=== PATIENT | male | born 2005 | race Caucasian/White ===

== ENCOUNTER 2024-02-08 01:33 | Emergency (ER) | payer SELFPAY ==
--- NOTE | ~2024-02-08 | XR_ITS ---
Clinical Indication: Chest pain PA and lateral views of the chest: Comparison: None Findings: The lungs are clear, without evidence of focal consolidation or pleural effusion. Cardiome diastinal silhouette is within normal limits. Bones and soft tissues are unremarkable. Impression: Normal chest. Reviewed, dictated and finalized at location . Impression: Normal chest.
[2024-02-08 01:36] VITALS: BP 144/75; PULSE 88; RESP 16; TEMP 36.6; O2SAT 100
--- NOTE | 2024-02-08 01:41 | ECG_ITS ---
Test Date: 2024-02-08 01:44:21 Measurements Intervals [place] Rate: 86 P: -35 WI: 139 QRS: -24 QRSD: 86 T: -12 QT: 344 QTc: 413 Interpretive Statements SINUS RHYTHM VOLTAGE CRITERIA FOR LVH MINIMAL Q WAVES- ANTEROLAT/HIGH LAT LEADS BASELINE ARTIFACT- I, II, III, AVR, AVL, AVF BORDERLINE ECG No previous ECG available for comparison Electronically Signed On 02-08-2024 06:53:01 CDT by Henrik Posada D.O.
[2024-02-08 01:55] LABS: Basophils Percent Auto 0.7 % (0.2-1.2); Eosinophils Absolute Auto 0.1 K/mm3 (0-0.3); Eosinophils Percent Auto 1.7 % (0-4.4); Hematocrit 39.6 % (42.0-52.0); Hemoglobin 13.9 g/dL (14.0-18.0); Immature Granulocyte Absolute 0.01 K/mm3 (0.00-0.031); Immature Granulocyte Percent A 0.2 % (0-0.5); Lymphocytes Absolute Auto 2.63 K/mm3 (0.9-3.2); Lymphocytes Percent Auto 44.8 % (18.3-44.2); Mean Corpuscular HGB Conc 35.1 g/dl (32-36); Mean Corpuscular Hemoglobin 31.2 pg (26-34); Mean Platelet Volume 9.3 fl (7.4-10.4); Monocytes Absolute Auto 0.6 K/mm3 (0.1-0.6); Monocytes Percent Auto 9.5 % (2.6-8.5); Neutrophils Absolute Auto 2.5 K/mm3 (1.3-6.7); Neutrophils Percent Auto 43.1 % (45.5-73.1); Platelet Count Result 195 k/mm3 (150-375); Red Blood Count 4.45 M/mm3 (4.6-6.20); Red Cell Distribution Width 11.9 % (11.5-14.5); White Blood Count 5.9 K/mm3 (4.5-10.0)
[2024-02-08 02:06] LABS: INR 1.1; Prothrombin Time 14.1 Seconds (11.1-14.7)
[2024-02-08 02:07] LABS: Partial Thromboplastin Time 26.1 Seconds (22.3-36.8)
[2024-02-08 02:26] LABS: Alanine Aminotransferase 14 U/L (6-50); Albumin Level 4.6 g/dL (3.5-5.1); Alkaline Phosphatase 68 U/L (38-126); Anion Gap 12 mmol/L (4-12); Aspartate Amino Transferase 22 U/L (17-59); Bilirubin,Total 0.5 mg/dL (0.2-1.3); Blood Urea Nitrogen 17 mg/dL (9-20); Calcium 9.3 mg/dL (8.4-10.2); Carbon Dioxide 26 mmol/L (22-30); Chloride 101 mmol/L (98-107); Estimated Glomerular Filt Rate > 60; Glucose 95 mg/dL (65-110); Lipase 92 U/L (23-300); Potassium 3.4 mmol/L (3.4-5.0); Sodium 139 mmol/L (137-145)
[2024-02-08 02:38] LABS: Troponin I < 0.012 ng/mL (0.000-0.034)
[2024-02-08 03:23] VITALS: O2SAT 99
[2024-02-08 03:24] VITALS: BP 165/78; PULSE 81; RESP 16; O2SAT 99
--- NOTE | 2024-02-08 03:29 | ED.CHESTPAIN ---
HPI - Chest Pain General Chief Complaint: Chest Pain Stated Complaint: palpitation Time Seen by Provider: 02/08/24 03:16 History of Present Illness HPI narrative: 18-year-old male present to the emergency department for evaluation for reproducible chest wall tenderness. Patient states he began having the symptoms today. Patient states he does cough but does have history of smoking. Patient denies any recent illnesses. Patient states pain is not worse with deep inspiration. denies any prior cardiac history for himself. Patient denies any significant past medical history. Related Data Allergies Allergy/AdvReac Type Severity Reaction Status Date / Time No Known Allergies Allergy Verified 02/08/24 01:35 Review of Systems Review of Systems: All systems reviewed & are unremarkable except as noted in HPI and below Exam Narrative: APPEARANCE: Well appearing, no pain, no distress, well-nourished. HEAD: normocephalic, atraumatic. EYES: PERRLA/EOMI, conjunctivae clear. NOSE: Normal no drainage EARS:TMS clear with good light reflex. THROAT: Pharynx clear, no exudate. NECK: Supple. No adenopathy, no masses. RESPIRATORY: Airway patent, respirations nonlabored. Clear to auscultation bilaterally, no rales, rhonchi, wheezing. CARDIOVASCULAR: Regular rate and rhythm without murmurs rubs or gallops. ABDOMINAL: Soft, nontender, nondistended, normal bowel sounds MUSCULOSKELETAL: Reproducible chest wall tenderness to palpation NEURO: Alert. Cranial nerves II through XII intact. Good gait. Good coordination SKIN: Warm, dry. Normal Color Course Vital Signs Vital signs: Vital Signs Temperature 97.9 F 02/08/24 01:36 Pulse Rate 88 02/08/24 01:36 Respiratory Rate 16 02/08/24 01:36 Blood Pressure 144/75 H 02/08/24 01:36 Pulse Oximetry 100 02/08/24 01:36 Oxygen Delivery Room Air 02/08/24 01:36 Temperature 97.9 F 02/08/24 01:36 Pulse Rate 87 02/08/24 05:28 Respiratory Rate 15 02/08/24 05:28 Blood Pressure 153/80 H 02/08/24 05:28 Pulse Oximetry 98 02/08/24 05:28 Oxygen Delivery Room Air 02/08/24 03:23 MDM - Chest Pain MDM Narrative Medical decision making narrative: 18-year-old male present to the ED for evaluation for chest pain. Patient is afebrile with no leukocytosis and hemoglobin of 13 point diet. Patient is an INR 1.1. Patient has no acute abnormalities on his CMP and his 1st troponin was negative. Lipase is not elevated. Chest x-ray shows no acute cardiopulmonary abnormality. Patient's EKG shows normal sinus rhythm with nonspecific ST changes Differential Diagnosis Differential diagnosis: Likely fracture of rib, pneumothorax, stable angina, unstable angina pectoris, atypical chest pain, st elevation myocardial infarction, costochondritis, chest pain and biliary colic Lab Data 02/08/24 01:50 02/08/24 01:50 Labs: Lab Results 02/08/24 02/08/24 02/08/24 Range/Units 01:50 04:02 04:44 WBC 5.9 (4.5-10.0) K/mm3 RBC 4.45 L (4.6-6.20) M/mm3 Hgb 13.9 L (14.0-18.0) g/dL Hct 39.6 L (42.0-52.0) % MCV 89.0 (80-100) fl MCH 31.2 (26-34) pg MCHC 35.1 (32-36) g/dl RDW 11.9 (11.5-14.5) % Plt Count 195 (150-375) k/mm3 MPV 9.3 (7.4-10.4) fl Immature Gran % (Auto) 0.2 (0-0.5) % Neut % (Auto) 43.1 L (45.5-73.1) % Lymph % (Auto) 44.8 H (18.3-44.2) % [place] % (Auto) 9.5 H (2.6-8.5) % Eos % (Auto) 1.7 (0-4.4) % Baso % (Auto) 0.7 (0.2-1.2) % Lymph # (Auto) 2.63 (0.9-3.2) K/mm3 [place] # (Auto) 0.6 (0.1-0.6) K/mm3 Eos # (Auto) 0.1 (0-0.3) K/mm3 Baso # (Auto) 0.0 (0.0-0.1) K/mm3 Abs Immat Gran (auto) 0.01 (0.00-0.031) K/mm3 Absolute Neuts (auto) 2.5 (1.3-6.7) K/mm3 Absolute Nucleated RBC 0.000 (0.0-0.012) K/mm3 Nucleated RBC % 0.0 (0.0-0.2) % PT 14.1 (11.1-14.7) Seconds INR 1.1 APTT 26.1 (22.3-36.8) Seconds Sodium 139 (137-145)
[2024-02-08] MEDS: KETOROLAC 30 MG/ML VIAL (*BKC) IM (04:00)
[2024-02-08 04:42] LABS: Influenza A QL RT-PCR Negative (Negative); Influenza B QL RT-PCR Negative (Negative); RSV RNA, RT-PCR Negative (Negative); SARS-CoV-2 RNA PCR Negative (Negative)
[2024-02-08 05:11] LABS: Troponin I < 0.012 ng/mL (0.000-0.034)
[2024-02-08 05:28] VITALS: BP 153/80; PULSE 87; RESP 15; O2SAT 98
== END 2024-02-08 05:29 | disposition home or self-care (01) ==
PROVIDERS: Emergency Provider Emergency Medicine
DX: R07.9 Chest pain, unspecified (principal); Z20.822 Contact with and (suspected) exposure to COVID-19
CPT/HCPCS: 36415; 71046; 80053; 83690; 84484; 85025; 85610; 85730; 87637; 93005; 96372; 99284; J1885